=== PATIENT | female | born 1965 | race Caucasian/White ===

== ENCOUNTER 2017-12-10 18:46 | Emergency (ER) | payer BC ==
--- NOTE | 2017-12-10 18:58 | EDM.PDOC ---
ED HPI GENERAL MEDICAL PROBLEM - General Chief Complaint: Lower Extremity Injury/Pain Stated Complaint: STEPPED ON A NAIL WITH LEFT FOOT Time Seen by Provider: 12/10/17 18:58 Source of Information: Reports: Patient History Limitations: Reports: No Limitations - History of Present Illness INITIAL COMMENTS - FREE TEXT/NARRATIVE: HISTORY AND PHYSICAL: History of present illness: 52-year-old female presenting emergency department chief complaint injury by stepping on nail with her left foot. Patient states that she was taking her son home around 6:15 from baseball. She pulled in from the outpatient noticed some scrap wood laying in the alley. She went to move the scrap wood so she didn't run over it tomorrow morning when she was on her way to work when she incidentally stepped on one of the warts puncturing her left heel. States that she did have to pull the nail out of the foot. There was minimal bleeding. Nail was dirty. It's been many years since she had her last tetanus. Currently denies any chest pain, palpitations, shortness breath, syncopal episodes, or focal neurologic deficits. Review of systems: As per history of present illness and below otherwise all systems reviewed and negative. Past medical history: As per history of present illness and as reviewed below otherwise noncontributory. Surgical history: As per history of present illness and as reviewed below otherwise noncontributory. Social history: No reported history of drug or alcohol abuse. Family history: As per history of present illness and as reviewed below otherwise noncontributory. Physical exam: HEENT: Atraumatic, normocephalic, pupils reactive, negative for conjunctival pallor or scleral icterus, mucous membranes moist, throat clear, neck supple, nontender, trachea midline. Lungs: Clear to auscultation, breath sounds equal bilaterally, chest nontender. Heart: S1S2, regular, negative for clicks, rubs, or JVD. Abdomen: Soft, nondistended, nontender. Negative for masses or hepatosplenomegaly. Negative for costovertebral tenderness. Pelvis: Stable nontender. Genitourinary: Deferred. Rectal: Deferred. Extremities: There is a pinpoint break in the skin of the left heel no bleeding , erythema, or induration., negative for cords or calf pain. Neurovascular unremarkable. Neuro: Awake, alert, oriented. Cranial nerves II through XII unremarkable. Cerebellum unremarkable. Motor and sensory unremarkable throughout. Exam nonfocal. Diagnostics: [] Therapeutics: DTaP, Bactrim DS 7 days Impression: Nail puncture left heel None updated tetanus Plan: Please see H&P. Patient was given a DTaP as well as a prescription for Bactrim. She was instructed to follow-up with primary care physician and return to emergency department she had any new or worsening symptoms. She should keep the puncture wound dry and clean. She can take Tylenol Motrin for pain. Left Feet Pain Score (Numeric/FACES): 2 - Related Data Allergies Allergy/AdvReac Type Severity Reaction Status Date / Time No Known Allergies Allergy Verified 12/10/17 18:56 Home Meds: Home Meds Tolterodine [Detrol LA 24 Hr] 2 mg PO DAILY 12/10/17 [History] Review of Systems - Review of Systems Review Of Systems: ROS reveals no pertinent complaints other than HPI. ED EXAM, GENERAL - Physical Exam Exam: See Below Course - Vital Signs Last Recorded V/S: Last Vital Signs Temp 97.1 F 12/10/17 18:57 Pulse 79 12/10/17 18:57 Resp 16 12/10/17 18:57 BP 135/96 H 12/10/17 18:57 Pulse Ox 98 12/10/17 18:57 - Orders/Labs/Meds Orders: Active Orders 24 hr Category Date Time Status Vaccines to be Administered [RC] PER UNIT ROUTINE Care 12/10/17 19:16 Active Meds: Medications Discontinued Medications Generic Name Dose Route Start Last Admin Trade Name Freq PRN Reason Stop Dose Admin Diphtheria/Tetanus/Acell Pertussis 0.5 ml 12/10/17 19:16 12/10/17 19:22 Adacel IM 12/10/17 19:17 0.5 ml .ONCE ONE Administration Departure - Departure Time of Disposition: 19:35 Disposition: Home, Self-Care 01 Condition: Good Clinical Impression: Puncture wound of skin from metal nail - Discharge Information Referrals: PCP,None [Primary Care Provider] - Forms: ED Department Discharge Additional Instructions: My general discharge The following information is given to patients seen in the emergency department who are being discharged to home. This information is to outline your options for follow-up care. We provide all patients seen in our emergency department with a follow-up referral. The need for follow-up, as well as the timing and circumstances, are variable depending upon the specifics of your emergency department visit. If you don't have a primary care physician on staff, we will provide you with a referral. We always advise you to contact your personal physician following an emergency department visit to inform them of the circumstance of the visit and for follow-up with them and/or the need for any referrals to a consulting specialist. The emergency department will also refer you to a specialist when appropriate. This referral assures that you have the opportunity for follow-up care with a specialist. All of these measure are taken in an effort to provide you with optimal care, which includes your follow-up. Under all circumstances we always encourage you to contact your private physician who remains a resource for coordinating your care. When calling for follow-up care, please make the office aware that this follow-up is from your recent emergency room visit. If for any reason you are refused follow-up, please contact the [facility] Emergency Department at and asked to speak to the emergency department charge nurse. [facility] [address] [place] [id number] [place] [address] Take medications as directed. Keep area clean and dry. Follow-up with primary care Return to emergency department if any new or worsening symptoms - My Orders Last 24 Hours: My Active Orders 12/10/17 19:16 Vaccines to be Administered [RC] PER UNIT ROUTINE - Assessment/Plan Last 24 Hours: My Active Orders 12/10/17 19:16 Vaccines to be Administered [RC] PER UNIT ROUTINE
[2017-12-10] MEDS ORDERED: Diphtheria,Pertussis(Acell),Tetanus Vaccine 0.5 ML Syringe IM ONE (19:16)
== END 2017-12-10 19:50 | disposition home or self-care (01) ==
LOC: MW.ED 18:46
DX: S91.332A Puncture wound without foreign body, left foot, initial encounter (principal); W45.0XXA Nail entering through skin, initial encounter; Z23 Encounter for immunization
CPT/HCPCS: 90471; 90715; 99283; 99283-25

== ENCOUNTER 2022-06-19 13:24 | Emergency (ER) | payer BC ==
[2022-06-19] MEDS ORDERED: Sodium Chloride 0.9% 10 ML Syringe FLUSH PRN (14:00)
[2022-06-19] MEDS ORDERED: Sodium Chloride 0.9% 2.5 ML Syringe FLUSH PRN (14:00)
[2022-06-19] MEDS ORDERED: Sodium Chloride 0.9% 1,000 ML IV ONE (14:03)
[2022-06-19] MEDS ORDERED: LORazepam 2 MG/ML SDV IVPUSH ONE (14:03)
[2022-06-19 14:58] LABS: CARBON DIOXIDE,CO2 24.9 mmol/L (21.0-32.0); POTASSIUM,K 3.2 mmol/L (3.5-5.1)
[2022-06-19] MEDS ORDERED: Iopamidol 755 MG/ML 500 ML Multipack Bottle IVPUSH STA (16:15)
[2022-06-19] MEDS ORDERED: Dexamethasone 10 MG/ML SDV IVPUSH ONE (17:15)
== END 2022-06-19 17:42 | disposition home or self-care (01) ==
LOC: MW.ED 13:24
DX: R22.0 Localized swelling, mass and lump, head (principal); Z79.899 Other long term (current) drug therapy
CPT/HCPCS: 36415; 70450; 70496; 70498; 72170; 80053; 83735; 84484; 85025; 93005; 96361; 96374; 96375; 99284; J1100; J2060; J3490; J7030; Q9967